=== PATIENT | male | born 1970 | race African-American/Black ===

== ENCOUNTER 2020-12-15 18:17 | Inpatient (IN) | payer OTHER ==
[~2020-12-15] VITALS: Ht 182.9 cm; Wt 80.2 kg
--- NOTE | 2020-12-15 18:27 | PHYS DOC ---
Past Medical History Past Medical History: No Pertinent History Past Surgical History: No Surgical History Smoking Status: Unknown if ever smoked Alcohol Use: None Drug Use: Other General Adult EDM: Chief Complaint: Overdose, suicidal ideation HPI: HPI: 50-year-old male with history of substance abuse presents to the emergency department after an intentional overdose of five street pills earlier today. Report from EMS states that the patient walked into a gas station and told the audit clerks supervisor "I think I am dying ", he would then went to the ground and began to appear to be sleeping. At the scene, EMS gave the patient 0.5 mg of Narcan IV with improvement of GCS from 5-13. The patient states that he took the street drugs earlier today in an attempt to kill himself. When questioned about the contents of the pills, he states that he does not know what they are but he is adamant that it was five total pills. He affirms that he did this in an attempt to end his life. He is overall a poor historian and is drowsy at the time of initial evaluation. Upon further questioning later in the course, the patient admits to suicidal ideations as well as homicidal ideations. He states that he has access to a gun, and he wants to shoot his girlfriend and has a plan to do so including going to the mother of his girlfriend's house and waiting for her there. Patient was immediately placed on a one-to-one after the statements of suicidality and eventually homicidalITY Review of Systems: Review of Systems: Constitutional: Denies fever or chills. Eyes: Denies change in visual acuity. HENT: Denies nasal congestion or sore throat. Respiratory: Denies cough or shortness of breath. Cardiovascular: Denies chest pain or edema. GI: Denies abdominal pain, nausea, vomiting, bloody stools or diarrhea. : Denies dysuria. Musculoskeletal: Denies back pain or joint pain. Integument: Denies rash. Neurologic: Denies headache, focal weakness. Psychiatric: Admits to intentional overdose, suicidal ideation, denies homicidal ideation Heart Score: C/O Chest Pain: No Family History: Family History: Noncontributory Physical Exam: PE: Constitutional: No acute distress, non-toxic appearance, drowsy, responds to alia n and verbal stimuli. HENT: Atraumatic, bilateral external ears normal, nose normal. Eyes: PERRLA, EOMI, conjunctiva normal, no discharge. Neck: Normal range of motion, supple, no stridor. Cardiovascular: Heart rate regular rhythm. 2+ radial pulses Lungs & Thorax: No respiratory distress, symmetrical expansion. Bilateral breath sounds clear to auscultation Abdomen: Soft, no tenderness Skin: Warm, dry. Extremities: No tenderness, no cyanosis, ROM intact, no edema. Neurologic: Alert and oriented X 3, normal motor function, normal sensory function, no focal deficits noted. GCS 13 E3, V4, and M6. Psychologic: Admits to suicidality Current Patient Data: Labs: Laboratory Tests Test 12/15/20 18:36 12/15/20 19:53 12/15/20 19:56 12/15/20 20:20 White Blood Count 5.3 x10^3/uL (4.0-11.0) Red Blood Count 5.09 x10^6/uL (4.30-5.70) Hemoglobin 15.1 g/dL (13.0-17.5) Hematocrit 44.4 % (39.0-53.0) Mean Corpuscular Volume 87 fL (79-100) Mean Corpuscular Hemoglobin 30 pg (25-35) Mean Corpuscular Hemoglobin Concent 34 g/dL (31-37) Red Cell Distribution Width 14.8 % (11.5-14.5) Platelet Count 198 x10^3/uL (140-400) Neutrophils (%) (Auto) 65 % (31-73) Lymphocytes (%) (Auto) 21 % (24-48) Monocytes (%) (Auto) 10 % (0-9) Eosinophils (%) (Auto) 3 % (0-3) Basophils (%) (Auto) 1 % (0-3) Neutrophils # (Auto) 3.5 x10^3/uL (1.8-7.7) Lymphocytes # (Auto) 1.1 x10^3/uL (1.0-4.8) Monocytes # (Auto) 0.5 x10^3/uL (0.0-1.1) Eosinophils # (Auto) 0.2 x10^3/uL (0.0-0.7) Basophils # (Auto) 0.0 x10^3/uL (0.0-0.2) Sodium Level 139 mmol/L (136-145) Potassium Level 3.3 mmol/L (3.5-5.1) Chloride Level 100 mmol/L (98-107) Carbon Dioxide Level 29 mmol/L (21-32) Anion Gap 10 (6-14) Blood Urea Nitrogen 12 mg/dL (8-26) Creatinine 1.1 mg/dL (0.7-1.3) Estimated GFR (Cockcroft-Gault) 70.3 Glucose Level 66 mg/dL (70-99) Calcium Level 9.2 mg/dL (8.5-10.1) Salicylates Level 0.9 mg/dL (2.8-20.0) Salicylate Last Dose Date Unknown Salicylate Last Dose Time Unknown Acetaminophen Level < 2 mcg/ml (10-30) Acetaminophen Last Dose Date Unknown Acetaminophen Last Dose Time Unknown Ethyl Alcohol Level < 10 mg/dL (0-10) SARS-CoV-2 Antigen (Rapid) Negative (NEGATIVE) Urine Collection Type Unknown Urine Color Yellow Urine Clarity Clear Urine pH 7.5 (<5.0-8.0) Urine Specific Means <=1.005 (1.000-1.030) Urine Protein Negative mg/dL (NEG-TRACE) Urine Glucose (UA) Negative mg/dL (NEG) Urine Ketones (Stick) Trace mg/dL (NEG) Urine Blood Negative (NEG) Urine Nitrite Negative (NEG) Urine Bilirubin Negative (NEG) Urine Urobilinogen Dipstick 1.0 mg/dL (0.2 mg/dL) Urine Leukocyte Esterase Negative (NEG) Urine RBC 0 /HPF (0-2) Urine WBC 0 /HPF (0-4) Urine Bacteria 0 /HPF (0-FEW) Urine Opiates Screen Neg (NEG) Urine Methadone Screen Neg (NEG) Urine Barbiturates Neg (NEG) Urine Phencyclidine Screen Pos (NEG) Urine Amphetamine/Methamphetamine Neg (NEG) Urine Benzodiazepines Screen Neg (NEG) Urine Cocaine Screen Neg (NEG) Urine Cannabinoids Screen Pos (NEG) Urine Ethyl Alcohol Neg (NEG) Glucose (Fingerstick) 129 mg/dL (70-99) Vital Signs: PROCEDURE: CT HEAD WO CONTRAST CT head without contrast PQRS statement: CT scans at this facility use dose reduction including either automated exposure control, iterative reconstructions, and /or weight based radiation dosing via mA and kV modification when appropriate to reduce radiation dose to as low as reasonably achievable. HISTORY: Altered mental status. FINDINGS: No intracranial hemorrhage, mass, hydrocephalus, extra-axial fluid collections or infarction. Chronic appearing nasal bone deformities. Ethmoid sinus mucosal thickening and partial opacification. Orbits, mastoids, skull base and calvarium are intact. IMPRESSION: 1. No acute intracranial CT abnormality. 2. Ethmoid sinus disease. Electronically signed by: Meliton Nelson MD (12/15/2020 7:10 PM) EKG: EKG: Time read: 1834 Sinus arrhythmia rate of 70, no ST-T wave changes, no ectopic beats, leftward axis, normal HI, QRS, and QTc intervals. Impression: Normal EKG. interpreted by Amanda mai D.O. Radiology/Procedures: Radiology/Procedures: PROCEDURE: CT HEAD WO CONTRAST CT head without contrast PQRS statement: CT scans at this facility use dose reduction including either automated exposure control, iterative reconstructions, and /or weight based radiation dosing via mA and kV modification when appropriate to reduce radiation dose to as low as reasonably achievable. HISTORY: Altered mental status. FINDINGS: No intracranial hemorrhage, mass, hydrocephalus, extra-axial fluid collections or infarction. Chronic appearing nasal bone deformities. Ethmoid sinus mucosal thickening and partial opacification. Orbits, mastoids, skull base and calvarium are intact. IMPRESSION: 1. No acute intracranial CT abnormality. 2. Ethmoid sinus disease. Electronically signed by: Meliton Nelson MD (12/15/2020 7:10 PM) Course & Med Decision Making: Course & Med Decision Making Patient obviously cannot leave the hospital on his own accord because of his threats toward another person and specific plans. The patient assessment team was contacted to evaluate the patient and agree that the patient needs psychiatric admission. Because of his positive PCP on his drug screen, he cannot be involuntarily held per [place] law at a psychiatric facility. The patient assessment team contacted [facility], will only accept a PCR Covid results. Because of this, will be the patient to the hospital overnight for further care. Patient was placed on a one-to-one for inpatient care Departure Departure Impression: Primary Impression: Homicidal ideation Additional Impressions: Suicidal overdose PCP (phencyclidine) abuse Disposition: HOME / SELF CARE / HOMELESS Admitting Physician: NITO (Tin) Condition: STABLE AMANDA ARIAS DO Dec 15, 2020 18:27
[2020-12-15 18:45] LABS: BASO % 1 % (0-3); EOS # 0.2 x10^3/uL (0.0-0.7); EOS % 3 % (0-3); HEMATOCRIT 44.4 % (39.0-53.0); HEMOGLOBIN 15.1 g/dL (13.0-17.5); LYMPH # 1.1 x10^3/uL (1.0-4.8); LYMPH % 21 % (24-48); MEAN CORPUSCULAR HEMOGLOBIN 30 pg (25-35); MEAN CORPUSCULAR HGB CONC 34 g/dL (31-37); MEAN CORPUSCULAR VOLUME 87 fL (79-100); MONO # 0.5 x10^3/uL (0.0-1.1); MONO % 10 % (0-9); NEUT # 3.5 x10^3/uL (1.8-7.7); NEUT % 65 % (31-73); PLATELET COUNT 198 x10^3/uL (140-400); RED BLOOD COUNT 5.09 x10^6/uL (4.30-5.70); RED CELL DISTRIBUTION WIDTH 14.8 % (11.5-14.5); WHITE BLOOD COUNT 5.3 x10^3/uL (4.0-11.0)
[2020-12-15 18:54] LABS: CALCIUM 9.2 mg/dL (8.5-10.1); CREATININE 1.1 mg/dL (0.7-1.3); GFR 70.3; POTASSIUM 3.3 mmol/L (3.5-5.1)
[2020-12-15 19:00] LABS: ACETAMIN < 2 mcg/ml (10-30); ETHANOL < 10 mg/dL (0-10); SALIC 0.9 mg/dL (2.8-20.0)
--- NOTE | 2020-12-15 19:12 | RAD ---
CT head without contrast PQRS statement: CT scans at this facility use dose reduction including either automated exposure cont rol, iterative reconstructions, and /or weight based radiation dosing via mA and kV modification when appropriate to reduce radiation dose to as low as reasonably achievable. HISTORY: Altered mental status. FINDINGS: No intracranial hemorrhage, mass, hydrocephalus, extra-axial fluid collections or infarctio n. Chronic appearing nasal bone deformities. Ethmoid sinus mucosal thickening and partial opacificati on. Orbits, mastoids, skull base and calvarium are intact. IMPRESSION: 1. No acute intracranial CT abnormality. 2. Ethmoid sinus disease. Electronically signed by: Meliton Nelson MD (12/15/2020 7:10 PM) [facility]
[2020-12-15] MEDS ORDERED: DEXTROSE 50% 25 GM / 50ML DISP.SYRIN. IV ONE (19:15)
--- NOTE | 2020-12-15 19:29 | EKG ---
[facility] [address] [place] [address] Test Date: 2020-12-15 Test Time: 18:32:34 Pat Name: REBECCA MALIN Department: Room: Gender: M Delivery Supervisor: : 1970 Requested By: AMANDA ARIAS Order Number: [id number] Reading MD: Brandon Zurita MD Measurements Intervals [place] Rate: 70 P: 63 DC: 142 QRS: -6 QRSD: 88 T: 51 QT: 402 QTc: 437 Interpretive Statements SINUS ARRHYTHMIA NON-SPECIFIC ST/T CHANGES Electronically Signed On 12-19-2020 11:25:43 CDT by Brandon Zurita MD
[2020-12-15 20:07] LABS: BILIRUBIN,URINE NEGATIVE (NEG); CLARITY,URINE CLEAR; COLOR,URINE YELLOW; NITRITE,URINE NEGATIVE (NEG); PH,URINE 7.5 (<5.0-8.0); PROTEIN,URINE NEGATIVE (NEG-TRACE)
[2020-12-15 20:14] LABS: BARBITURATES NEG (NEG); BENZODIAZEPINES NEG (NEG); CANNABINOIDS POS (NEG); COCAINE NEG (NEG); METHADONE NEG (NEG); OPIATES NEG (NEG); PHENCYCLIDINE POS (NEG)
[2020-12-15 20:15] LABS: AMPHETAMINE/METHAMPHETAMINE NEG (NEG)
[2020-12-15 20:19] LABS: BACTERIA,URINE 0 /HPF (0-FEW); RBC,URINE 0 /HPF (0-2); WBC,URINE 0 /HPF (0-4)
[2020-12-15] MEDS ORDERED: ONDANSETRON PF 4 MG/2 ML VIAL. IVP PRN (23:30)
[2020-12-16 10:46] VITALS: BP 140/83
--- NOTE | 2020-12-16 10:53 | NUR ---
SS following for discharge planning. SS reviewed pt chart and discussed with pt RN. Pt is homeless and is currently on room air. Pt admitted with both suicidal and homicidal ideations. Pt is on 1:1 at this time. Pt positive for PCP and THC. COVID19 pending. [facility] team met with pt in the ER last night and attempted to screen at [facility] for inpatient placement. [facility] denied pt. Dora from [facility] team coming to visit with pt today for further assessment. SS will continue to follow for discharge planning. Addendum: 12/16/20 at 1400 by TOMY ZARATE SS Dora from [facility] team met with pt and confirmed that pt was denied at [facility] for inpatient treatment. Per PAT team, pt still SI and HI and continues to warrant 1:1. [facility] team attempting placement at . Per RN, sodium is low and needs to be replaced. Dora requested to be notified when sodium was within normal limits and she will send referral to . Packet placed on chart. Addendum: 12/16/20 at 1427 by TOMY ZARATE SS CORRECTION TO PREVIOUS NOTE: Pt potassium is low.
[2020-12-16] MEDS ORDERED: POTASSIUM CHLORIDE 20 MEQ TABLET.ER. PO ONE (11:45)
--- NOTE | 2020-12-16 13:00 | HP ---
DATE OF SERVICE: 12/16/2020 ADMIT DATE: 12/15/2020 CHIEF COMPLAINT: Overdose. HISTORY OF PRESENT ILLNESS: The patient is a pleasant 50-year-old male who states he overdosed on [address] pills. He thinks they were "Sherm." He states that slang for PCP. He apparently had been walking around and walk to a gas station and thought he was dying. He fell on the ground and began to sleep. When EMS arrived, they gave him some Narcan, which improved. The patient is somewhat from a GCS of 5-13. Apparently, he states he admitted to the EMS crew that he took the pills earlier today to try to kill himself. I discussed the case with ER physician. The patient has now been admitted and being examined on the medical floor. He is starting to wake up and denies that he was trying to kill himself. PAST MEDICAL HISTORY: Drug abuse, probable psychiatric issues. ALLERGIES: OPIOIDS AND MORPHINE. FAMILY HISTORY: Diabetes. SOCIAL HISTORY: He does not drink, smoke or take drugs. MEDICATIONS: Reviewed, according to the records, he is not on any medications, but he states he takes street meds. REVIEW OF SYSTEMS: GENERAL: No history of weight change, weakness or fevers. SKIN: No bruising, hair changes or rashes. EYES: No blurred, double or loss of vision. NOSE AND THROAT: No history of nosebleeds, hoarseness or sore throat. HEART: No history of palpitations, chest pain or shortness of breath on exertion. LUNGS: Denies cough, hemoptysis, wheezing or shortness of breath. GASTROINTESTINAL: Denies changes in appetite, nausea, vomiting, diarrhea or constipation. GENITOURINARY: No history of frequency, urgency, hesitancy or nocturia. NEUROLOGIC: He complains of weakness. PSYCHIATRIC: He complains of depression. Although, he denies suicidal ideation at this time. Although, he has had some suicidal ideation in the past. ENDOCRINE: No history of heat or cold intolerance, polyuria or polydipsia. EXTREMITIES: Denies muscle weakness, joint pain, pain on walking or stiffness. PHYSICAL EXAMINATION: VITALS: Within normal limits and are stable. GENERAL: He is somewhat sleepy, but he awoke and spoke with me. HEENT: Normal cephalic atraumatic, external auditory canals are patent. EYES: Extraocular muscles are intact, pupils are equally round and reactive to light and accommodation. MUSCULOSKELETAL: Well developed, well nourished, good range of motion. ENDOCRINE: No thyromegaly was palpated. LYMPHATICS: No cervical chain or axillary nodes were noted. HEMATOPOIETIC: No bruising. NECK: Supple, no JVD, no thyromegaly was noted. LUNGS: Clear to auscultation in all lung brooks without rhonchi or wheezing. HEART: RRR, S1, S2 present. Peripheral pulses intact, no obvious murmurs were noted. ABDOMEN: Soft, nontender. Positive bowel sounds no organomegaly, normal bowel sounds. EXTREMITIES: Without any cyanosis, clubbing, or edema. Pedal pulses intact, Homans sign is negative. NEUROLOGIC: He is weak, but stable. PSYCHIATRIC: He appears somewhat depressed. SKIN: No ulcerations or rashes, good skin turgor, no jaundice. VASCULAR: Good capillary refill, neurovascular bundle appears to be intact. LABORATORY DATA: Hematology is normal, electrolytes are normal other than a low potassium of 3.3. Urinalysis negative. Drug screen positive for PCP and cannabinoids. COVID testing negative. CT of the head was negative other than some ethmoid sinus disease. ASSESSMENT AND PLAN: Ingestion with possible suicide attempt, drug abuse, hypokalemia, probable depression, anxiety and other psychiatric issues. Clinically, the patient is stable and we will replace his potassium. We have 1:1 observation. We put an order in for psychiatric assessment team to see him. I think the plan is to get him to [facility] inpatient psych at some point. For now, we will encourage p.o. intake., p.r.n., Matthew and await further psychiatric assessment team input. EVELYN DR: Ike TID: [id number]
--- NOTE | 2020-12-16 14:12 | EKG ---
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
--- NOTE | 2020-12-16 14:20 | NUR ---
RN Note: MOBILE MARKETING SPECIALIST called This RN to patient room stating he had personal belongings and she had witnessed a knife and razor in his bag. Security notified and responded to bedside. Patient refusing to give up belongings. KC called by security and responded with Nursing Interior Design Project Manager and Nurse Date Puller. Belongings searched and removed by MOBILE MARKETING SPECIALIST and Nurse Date Puller.
[2020-12-16 19:00] VITALS: BP 139/87
[2020-12-16 23:00] VITALS: BP 130/80
[2020-12-17 03:14] VITALS: BP 135/91
[2020-12-17 04:05] LABS: ALBUMIN 3.5 g/dL (3.4-5.0); ALBUMIN/GLOBULIN RATIO 0.9 (1.0-1.7); CALCIUM 8.9 mg/dL (8.5-10.1); CREATININE 1.2 mg/dL (0.7-1.3); GFR 76.9; POTASSIUM 4.3 mmol/L (3.5-5.1); TOTAL BILIRUBIN 0.4 mg/dL (0.2-1.0); TOTAL PROTEIN 7.2 g/dL (6.4-8.2)
[2020-12-17 07:00] VITALS: BP 145/82
[2020-12-17 11:00] VITALS: BP 134/78
[2020-12-17 12:05] VITALS: BP 134/78
--- NOTE | 2020-12-17 12:34 | PDOC ---
[employer] PROGRESS NOTE Date of Service DOS: DATE: 12/17/20 TIME: 12:16 Chief Complaint Chief Complaint Phencyclidine overdose Substance abuse disorder Hypokalemia Homicidal ideation Suicidal ideation Possible suicide attempt History of Present Illness History of Present Illness 12/17 Patient seen and examined at bedside Pt resting comfortably at time of exam No acute overnight events Patient with 1:1 supervision, RN reports no events Discussed transfer to inpatient psych at , pt agreeable Discussed negative health effects of phencyclidine, encouraged cessation Charts Reviewed Discussed with RN and SW Vitals/I&O Vitals/I&O: Vital Signs Date Time Temp Pulse Resp B/P (MAP) Pulse Ox O2 Delivery O2 Flow Rate FiO2 12/17/20 12:05 98.6 61 16 134/78 (96) 99 Room Air 98.6 I & O 12/16/20 12/16/20 12/17/20 15:00 23:00 07:00 Intake Total 480 ml 100 ml 360 ml Balance 480 ml 100 ml 360 ml Physical Exam Physical Exam: GENERAL: Not in acute distress, comfortable, pleasant. Generalized weakness HEENT: Normal cephalic atraumatic, external auditory canals are patent. EYES: Extraocular muscles are intact, pupils are equally round and reactive to light and accommodation. MUSCULOSKELETAL: Well developed, well nourished, good range of motion. ENDOCRINE: No thyromegaly was palpated. LYMPHATICS: No cervical chain or axillary nodes were noted. HEMATOPOIETIC: No bruising. NECK: Supple, no JVD, no thyromegaly was noted. LUNGS: Clear to auscultation in all lung brooks without rhonchi or wheezing. HEART: RRR, S1, S2 present. Peripheral pulses intact, no obvious murmurs were noted. ABDOMEN: Soft, nontender. Positive bowel sounds no organomegaly, normal bowel sounds. EXTREMITIES: Without any cyanosis, clubbing, or edema. Pedal pulses intact, Homans sign is negative. NEUROLOGIC: He is weak, but stable. No FND noted PSYCHIATRIC: He appears somewhat depressed. SKIN: No ulcerations or rashes, good skin turgor, no jaundice. VASCULAR: Good capillary refill, neurovascular bundle appears to be intact General: Alert (Initially sleepy at time of exam, but alert after a few minutes), Oriented X3, Cooperative, No acute distress Heart: Regular rate, Normal S1, Normal S2 Lungs: Clear Abdomen: Normal bowel sounds, Soft Extremities: No clubbing, No cyanosis Skin: No rashes, No breakdown Labs Labs: Laboratory Tests Test 12/17/20 03:30 Sodium Level 141 mmol/L (136-145) Potassium Level 4.3 mmol/L (3.5-5.1) Chloride Level 105 mmol/L (98-107) Carbon Dioxide Level 29 mmol/L (21-32) Anion Gap 7 (6-14) Blood Urea Nitrogen 12 mg/dL (8-26) Creatinine 1.2 mg/dL (0.7-1.3) Estimated GFR (Cockcroft-Gault) 76.9 BUN/Creatinine Ratio 10 (6-20) Glucose Level 93 mg/dL (70-99) Calcium Level 8.9 mg/dL (8.5-10.1) Total Bilirubin 0.4 mg/dL (0.2-1.0) Aspartate Amino Transf (AST/SGOT) 30 U/L (15-37) Alanine Aminotransferase (ALT/SGPT) 47 U/L (16-63) Alkaline Phosphatase 53 U/L (46-116) Total Protein 7.2 g/dL (6.4-8.2) Albumin 3.5 g/dL (3.4-5.0) Albumin/Globulin Ratio 0.9 (1.0-1.7) Review of Systems Review of Systems: Pt acknowledges generalized weakness and feeling depressed ROS otherwise negative Assessment and Plan Assessmemt and Plan Problems Medical Problems: (1) Homicidal ideation Status: Acute (2) PCP (phencyclidine) abuse Status: Acute (3) Suicidal overdose Status: Acute Phencyclidine overdose Substance abuse disorder Hypokalemia Possible suicidal ideation Possible suicide attempt Homicidal Ideation Plan He is completely medically stable for discharge to psychiatric facility For now see the following plan; Probable discharge to inpatient psych at , medically clear Encouraged phencyclidine and other illicit drug cessation Continue monitoring 1:1 Disposition: Likely transfer to inpatient psych at Full Code Comment Review of Relevant I have reviewed the following items naomi (where applicable) has been applied. Justifications for Admission Other Justification ALEX MAXWELL III DO Dec 17, 2020 12:34
--- NOTE | 2020-12-17 12:38 | EKG ---
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
--- NOTE | 2020-12-17 12:50 | SNU/HH DC ---
DISCHARGE ORDERS DISCHARGE INFORMATION: FINAL DIAGNOSIS Problems Medical Problems: (1) Homicidal ideation Status: Acute (2) PCP (phencyclidine) abuse Status: Acute (3) Suicidal overdose Status: Acute CONDITION ON DISCHARGE: Stable CODE STATUS: Code Status: Full ASSISTED: SNF STAY <30 DAYS: No HOSPICE: HOSPICE: No HOSPICE EVAL & TREAT: No LTAC: ADMIT TO LTAC: No POST DISCHARGE ORDERS: ACTIVITY ORDERS: Resume previous activity WEIGHT BEARING STATUS: Full weight bearing DIET AFTER DISCHARGE: Regular FOLLOW-UP: Additional Instructions: Discharge to inpatient psychiatric facility Follow-up with his primary care doctor in 1 month ALEX MAXWELL III DO Dec 17, 2020 12:50
--- NOTE | 2020-12-17 13:19 | DS ---
DATE OF DISCHARGE: 12/17/2020 ADMISSION DIAGNOSIS: Overdose of PCP. DISCHARGE DIAGNOSES: Resolving overdose, history of drug abuse. HOSPITAL COURSE: The patient is a pleasant middle-aged male who took 5 PCP tablets and overdosed. He was admitted. We have observed him for 48 hours now. We replaced his potassium. I saw him this morning, he is clinically stable and cleared to go to inpatient psychiatric unit. DISPOSITION: Inpatient psychiatric unit. ACTIVITY: As tolerated. DIET: Regular. TOTAL TIME: 32 minutes. We would like to resume his previous home medications. AGUSTIN/MEDINA DR: Ike TID: [id number]
[2020-12-17 14:00] VITALS: BP 136/80
[2020-12-18 07:00] VITALS: BP 140/92
--- NOTE | 2020-12-18 12:10 | NUR ---
Around 1100 patient became verbally aggressive with nurse that was sitting in room with him. Pancho with PAT team, Dr. Lynn, & his students were there shortly after this started. Patient had agreed to leave hospital then stated he wasn't going to leave. Patient was sitting in the shower stating [facility] Security was called & patient was also not cooperating for him as well. [employer] was then called & patient was escorted out of hospital to go to [facility] since he had a warrant out. Patient was in stable condition when he left.
--- NOTE | 2020-12-18 12:10 | NUR ---
Discharge Note: REBECCA MALIN [address] [place] [address] The following instructions and handouts were given: N/A patient left with police. Discontinued lines and drains: IV was already out. Patient discharged to [facility]/nursing home with Law Enforcement via [facility]ulated at 1210.
--- NOTE | 2020-12-18 12:51 | PDOC ---
[employer] PROGRESS NOTE Date of Service DOS: DATE: 12/18/20 TIME: 12:41 Chief Complaint Chief Complaint Phencyclidine overdose Substance abuse disorder Hypokalemia Homicidal ideation Suicidal ideation Possible suicide attempt History of Present Illness History of Present Illness 12/18 Pt seen and examined at bedside Charts reviewed PAT had seen pt prior to exam Pt was very agitated at time of exam, had threatened RN and demanded he leave AMA Encouraged pt to stay and be evaluated by inpatient psych, pt refused Discussed pt with RN, SHEA, AMADEO Security and police called d/t patient's aggressive behavior Pt left with [facility] Office, d/t outstanding warrant 12/17 Patient seen and examined at bedside Pt resting comfortably at time of exam No acute overnight events Patient with 1:1 supervision, RN reports no events Discussed transfer to inpatient psych at , pt agreeable Discussed negative health effects of phencyclidine, encouraged cessation Charts Reviewed Discussed with RN and AMADEO Vitals/I&O Vitals/I&O: Vital Signs Date Time Temp Pulse Resp B/P (MAP) Pulse Ox O2 Delivery O2 Flow Rate FiO2 12/18/20 07:00 98.0 76 16 140/92 (108) 96 Room Air 98.0 I & O 12/17/20 12/17/20 12/18/20 15:00 23:00 07:00 Intake Total 800 ml Balance 800 ml Physical Exam Physical Exam: GENERAL: Not in acute distress, comfortable, agitated Generalized weakness HEENT: Normal cephalic atraumatic, external auditory canals are patent. EYES: Extraocular muscles are intact, pupils are equally round and reactive to light and accommodation. MUSCULOSKELETAL: Well developed, well nourished, good range of motion. ENDOCRINE: No thyromegaly was palpated. LYMPHATICS: No cervical chain or axillary nodes were noted. HEMATOPOIETIC: No bruising. NECK: Supple, no JVD, no thyromegaly was noted. LUNGS: Clear to auscultation in all lung brooks without rhonchi or wheezing. HEART: RRR, S1, S2 present. Peripheral pulses intact, no obvious murmurs were noted. ABDOMEN: Soft, nontender. Positive bowel sounds no organomegaly, normal bowel sounds. EXTREMITIES: Without any cyanosis, clubbing, or edema. Pedal pulses intact, Homans sign is negative. NEUROLOGIC: He is weak, but stable. No FND noted PSYCHIATRIC: Pt demonstrated aggressive and agitated behavior SKIN: No ulcerations or rashes, good skin turgor, no jaundice. VASCULAR: Good capillary refill, neurovascular bundle appears to be intact General: Alert (Initially sleepy at time of exam, but alert after a few minutes), Oriented X3, No acute distress, Other (Patient agitated) Heart: Regular rate, Normal S1, Normal S2 Lungs: Clear Abdomen: Normal bowel sounds, Soft Extremities: No clubbing, No cyanosis Skin: No rashes, No breakdown Review of Systems Review of Systems: ROS not obtained d/t pt refusing to cooperate with exam Assessment and Plan Assessmemt and Plan Problems Medical Problems: (1) Homicidal ideation Status: Acute (2) PCP (phencyclidine) abuse Status: Acute (3) Suicidal overdose Status: Acute Phencyclidine overdose Substance abuse disorder Hypokalemia Possible suicidal ideation Possible suicide attempt Homicidal Ideation Plan Originally, medically cleared for evaluation by inpatient psych PAT consulted and input appreciated Patient refused consent, and demanded he leave AMA Pt left AMA with [facility] office d/t warrant Comment Review of Relevant I have reviewed the following items naomi (where applicable) has been applied. Justifications for Admission Other Justification ALEX MAXWELL III DO Dec 18, 2020 12:51
--- NOTE | 2020-12-18 14:55 | DS ---
DATE OF DISCHARGE: 12/18/2020 ADMITTING DIAGNOSIS: PCP overdose. DISCHARGE DIAGNOSES: Resolving PCP overdose (he had to be physically removed from the hospital by the police because he refused to leave); history of substance abuse; hypokalemia, resolving; history of homicidal ideation; history of suicidal ideation. HOSPITAL COURSE: The patient is a pleasant middle-aged male who took 5 tablets of PCP and overdosed. There was some concern if this was a suicidal ideation, but once he rested for a couple of days, he denied that. We then tried to get him into the inpatient psych unit at his request, but then he refused that. After several days of trying to arrange things, he then became combative this morning. He was very belligerent. He was cursing and refused to come out of the shower. We had to call security, then security had to call the police. He was then arrested as he had an outstanding warrant. He was medically stable. They took him to prison. DISPOSITION: Intermediate. ACTIVITY: As tolerated. DIET: Low sodium. MEDICATIONS: None. CHINTAN DR: Ike TID: [id number]
== END 2020-12-18 12:10 | DRG 918 ==
LOC: ER 18:17 → 6 SOUTH 23:08 → OBSVTOIN 12-16 14:08
PROVIDERS: ADMIT Internal Medicine; ATTEND Internal Medicine
DX: T40.992A Poisoning by other psychodysleptics [hallucinogens], intentional self-harm, initial encounter (principal); Z83.3 Family history of diabetes mellitus; F16.10 Hallucinogen abuse, uncomplicated; E87.6 Hypokalemia; Z20.822 Contact with and (suspected) exposure to COVID-19; W18.39XA Other fall on same level, initial encounter; Y93.89 Activity, other specified; Y92.89 Other specified places as the place of occurrence of the external cause; Y99.9 Unspecified external cause status; Z88.8 Allergy status to other drugs, medicaments and biological substances; F19.10 Other psychoactive substance abuse, uncomplicated; R45.850 Homicidal ideations
CPT/HCPCS: 36415; 70450; 80048; 80053; 80307; 80329; 81001; 82962; 85025; 87426; 93005; G0378; G0379; G0480; U0003; U0005; 99285-25